=== PATIENT | male | born 1990 ===

== ENCOUNTER 2019-10-26 15:47 | Emergency (ER) | payer OTHER, MEDICAID, SELFPAY ==
[2019-10-26] VITALS (33 sets, daily range): BP systolic 93–116; BP diastolic 30–73; PULSE 110–156; RESP 16–40; TEMP 37.6–41.6; O2SAT 81–100
[2019-10-26] MEDS: KETAMINE 500 MG/5 ML INJ 150 MG IV (15:47)
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
--- NOTE | 2019-10-26 15:54 | DI.RAD.S_ITS ---
PROCEDURE: XR CHEST 1V INDICATIONS: altered mental status TECHNIQUE: One view of the chest was acquired. COMPARISON: None. FINDINGS: Surgical changes and devices: None. Lungs and pleura: An ice pack overlying the right shoulder results in limited evaluation of the osseous structures of the right shoulder or the right lung apex. No obvious right-sided area of consolidation is seen. There is no definitive pneumothorax. Mediastinum: Mediastinal contours appear normal. Heart size is normal. Bones and chest wall: No suspicious bony lesions. Overlying soft tissues appear unremarkable. IMPRESSION: Limited evaluation of the chest related to overlying material on the right lung apex and shoulder. No acute cardiopulmonary process is suspected. Dictated by: Sunil Lim M.D. on 10/26/2019 at 15:16 Approved by: Sunil Lim M.D. on 10/26/2019 at 15:17
[2019-10-26 16:10] LABS: Add Manual Diff / Slide Review NO; Basophils Absolute Auto 100 /uL (0-100); Basophils Percent Auto 0.7 % (0-2); Eosinophils Absolute Auto 100 /uL (0-450); Eosinophils Percent Auto 0.5 % (2-4); Hematocrit 38.6 % (41-53); Hemoglobin 13.3 g/dL (13.5-17.5); Lymphocytes Absolute Auto 3100 /uL (1100-4500); Lymphocytes Percent Auto 28.7 % (25-40); Mean Corpuscular HGB Conc 34.6 % (30-36); Mean Corpuscular Hemoglobin 31.9 PG (26-34); Mean Corpuscular Volume 92.4 fL (80-100); Monocytes Absolute Auto 900 /uL (0-900); Monocytes Percent Auto 8.7 % (3-14); Neutrophils Absolute Auto 6600 /uL (1500-7000); Neutrophils Percent Auto 61.4 % (50-75); Platelet Count 475 X10^3/uL (150-400); Red Blood Cell Count 4.18 X10^6/uL (4.5-5.9); Red Cell Distribution Width 12.1 % (11.6-14.8); White Blood Cell Count 10.7 X10^3/uL (4.5-11.0)
[2019-10-26] MEDS: SODIUM CHLORIDE 0.9% 1,000 ML 150 ML IV (16:12)
--- NOTE | 2019-10-26 16:14 | DI.CT.S_ITS ---
PROCEDURE: CT HEAD/BRAIN WO CON INDICATIONS: altered mental status TECHNIQUE: Noncontrast 4.5 mm thick angled axial sections acquired from the foramen magnum to the vertex, with coronal and sagittal reformats. For radiation dose reduction, the following was used: automated exposure control, adjustment of mA and/or kV according to patient size. COMPARISON: None. FINDINGS: Image quality: Excellent. CSF spaces: Basal cisterns are patent. No extra-axial fluid collections. Ventricles are normal in size and shape. Mild prominence of the tentorium in the midline falx is present. Calcifications along the tentorium are incidentally noted. Brain: No midline shift. No intracranial masses or hemorrhage. Jones-white matter interface is normal. Skull and face: Calvarium and visualized facial bones are intact, without suspicious lesions. Sinuses: Visualized sinuses and mastoids are clear. IMPRESSION: No acute intracranial hemorrhage. Calcifications along the tentorium may be related to previous infection or hemorrhage. Dictated by: Sunil Lim M.D. on 10/26/2019 at 15:41 Approved by: Sunil Lim M.D. on 10/26/2019 at 15:43
[2019-10-26 16:23] LABS: PTT Partial Thromboplastin Tim 28 SECONDS (26.4-36.2)
[2019-10-26 16:25] LABS: UR Morphine/Opiate cutoff 300 Negative (Negative); Ur Creatinine Normal (Normal); Ur Specific Gravity Normal (Normal); Urine Amphetamines Positive (Negative); Urine Barbiturates Negative (Negative); Urine Benzodiazepines Negative (Negative); Urine Cocaine Negative (Negative); Urine MDMA Positive (Negative); Urine Methadone Negative (Negative); Urine Methamphetamines Positive (Negative); Urine Oxycodone Negative (Negative); Urine Phencyclidine Negative (Negative); Urine Tetrahydrocannabinol Positive (Negative); Urine Tricyclic Antidepressant Negative (Negative); Urine pH Normal (Normal)
[2019-10-26 16:26] LABS: Creatine Kinase 195 U/L (55-170)
[2019-10-26 16:27] LABS: Acetaminophen < 10 ug/mL (10-30); Alanine Aminotransferase 18 IU/L (<50); Albumin 5.1 g/dL (3.5-5.0); Albumin Globulin Ratio 1.8 (1.0-2.8); Alkaline Phosphatase 84 U/L (38-126); Aspartate Aminotransferase 30 IU/L (17-59); Bilirubin Total 0.5 mg/dL (0.2-1.3); Blood Urea Nitrogen 12 mg/dL (9-20); Calcium 9.9 mg/dL (8.4-10.2); Carbon Dioxide 25 mmol/L (22-32); Chloride 101 mmol/L (98-107); Estimated Glomerular Filt Rate > 60.0 mL/min (>60); Ethanol (ETOH) < 10 mg/dL; Globulin 2.9 g/dL (1.7-4.1); Glucose 147 mg/dL (70-100); HEMOLYSIS < 15 (0-50); Salicylate < 1.0 mg/dL (<20); Sodium 143 mmol/L (137-145)
[2019-10-26 16:39] LABS: Troponin I < 0.012 ng/mL (0.01-0.034)
[2019-10-26] MEDS: ACETAMINOPHEN 650 MG SUPP PR (16:40)
[2019-10-26 16:41] LABS: Creatine Kinase MB 3.82 ng/mL (<2.37)
[2019-10-26 16:43] LABS: Prolactin 18.7 ng/mL (3.7-17.9)
[2019-10-26] MEDS: LORazepam 2 MG/ML INJ IV (16:45)
--- NOTE | 2019-10-26 16:47 | PC.NURSE ---
1645 2 mg IV ativan administered per Verbal MD order. Provider, RT, two RN at bedside suctioning patient and setting up for intubation. 10mg IV etomidate and 100mg Roccaronium adminstered IV for intubation @1651. Tube 7.5. Color change. Good Auscultation.
--- NOTE | 2019-10-26 16:57 | PC.NURSE ---
108.3 rectal at 1640
--- NOTE | 2019-10-26 17:01 | DI.RAD.S_ITS ---
PROCEDURE: XR CHEST 1V INDICATIONS: intubated AND gastric tube placement TECHNIQUE: One view of the chest was acquired. COMPARISON: [facility], , XR CHEST 1V, 10/26/2019, 15:58. FINDINGS: Surgical changes and devices: Endotracheal tube and nasogastric tubes are in expected location. Endotracheal tip is 3.5 cm above the cornelius. Lungs and pleura: Lungs are clear. The right costophrenic angle was not imaged. No pleural effusions or pneumothorax. Mediastinum: Mediastinal contours appear normal. Heart size is normal. Bones and chest wall: No suspicious bony lesions. Overlying soft tissues appear unremarkable. IMPRESSION: 1. Expected location of endotracheal and nasogastric tubes. 2. No acute cardiopulmonary disease. Dictated by: Julia Dang M.D. on 10/26/2019 at 18:14 Approved by: Julia Dang M.D. on 10/26/2019 at 18:16
--- NOTE | 2019-10-26 17:05 | PC.NURSE ---
1600 upon arrival to ED temp 108.6 rectal temp obtained. Multiple ice bags applied to body.
--- NOTE | 2019-10-26 17:08 | PC.NURSE ---
cooling blanket placed under and on top of patient to facilitate cooling measures
[2019-10-26] MEDS: PROPOFOL 1,000 MG/100 ML VIAL 2.34 MG IV (17:17)
--- NOTE | 2019-10-26 17:23 | PC.NURSE ---
ABG obtained by RT right wrist
[2019-10-26 17:46] LABS: pH ABG 7.35 (7.35-7.45)
[2019-10-26 17:47] LABS: HCO3 ABG 28 mmol/L (22-26); Oxygen Saturation ABG 100 % (95-100); PCO2 ABG 50.1 mmHg (35-45); PO2 ABG 511 mmHg (80-100); TCO2 ABG 29 mmol/L (21-31)
[2019-10-26 17:48] LABS: Fractionated Inspired Oxygen 100
[2019-10-26] MEDS: SODIUM CHLORIDE 0.9% 1,000 ML 250 ML IV (17:58)
--- NOTE | 2019-10-26 18:17 | PC.NURSE ---
Upon arrival, patient appears blue around lips and is grunting with copious secretions. Is low in possible seizure-like activity. Dr. Lujan gave verbal order for 150mg Ketmine. Patient was placed on NRB at 15L of O2. Patient's saturation ness from 81% on RA to 98& on NRB. He no longer appears blue, is no longer low however continues with secretions and body is rigid with grunting, shallow, fast breathing. patient was suctioned. He went to CT and came back and was suctioned again. At this time a nasal trumpet was placed to attempt Deep suctioning. Patient is still unresponsive and respiratory status appears to be declining. Dr. Lujan at bedside, prepping for intubation.
[2019-10-26] MEDS: ETOMIDATE 2 MG/ML 10 ML VIAL 10 MG IV (18:22)
[2019-10-26] MEDS: ROCURONIUM 50 MG/5 ML INJ 100 MG IV (18:23)
--- NOTE | 2019-10-26 19:45 | PC.NURSE ---
I spoke with poison Control and gave them an update on the patient.
--- NOTE | 2019-10-26 20:02 | PC.NURSE ---
Patient's rectal temp is 108.6F
--- NOTE | 2019-10-26 20:03 | PC.NURSE ---
Patient being suctioned and given meds at this time.
--- NOTE | 2019-10-26 20:05 | PC.NURSE ---
Rectal temp of 108.3F at this time.
--- NOTE | 2019-10-26 20:06 | PC.NURSE ---
In CT Scan
--- NOTE | 2019-10-26 20:09 | PC.NURSE ---
Addendum entered by Carolyne Novak R.N. 10/26/19 20:10: Patient's respiratory and mental status declining, being prepped for intubation at this time. Patient's rectal temp now 107.8F. Cooling blanket set to 60degrees F. applied to front and back of patient along with ice packs. Slow cooling in progress per Dr. Lujan. Cooling to be DC'd at 101.5F. Original Note: Patient's respiratory and mental status declinging, being prepped for intubation at this time.
--- NOTE | 2019-10-26 20:16 | PC.NURSE ---
Intubation in progress.
--- NOTE | 2019-10-26 20:19 | PC.NURSE ---
Temp probe catheter inserted to continuously monitor temp while cooling.
--- NOTE | 2019-10-26 20:25 | PC.NURSE ---
Cooling discontinued and cooling blanket removed at this time. Warm blankets placed on patient. Ice packs removed. Dr. Lujan aware.
--- NOTE | 2019-10-26 21:46 | PC.NURSE ---
2129 Propofol drip continued by EMS in transport.
== END 2019-10-26 21:30 | disposition short-term general hospital (02) ==
PROVIDERS: Emergency Provider Emergency Medicine
DX: R50.9 Fever, unspecified (principal); R00.0 Tachycardia, unspecified; R41.82 Altered mental status, unspecified; J96.90 Respiratory failure, unspecified, unspecified whether with hypoxia or hypercapnia
CPT/HCPCS: 31500; 36600; 70450; 71045; 80053; 80305; 80320; 80329; 82550; 82553; 82805; 84146; 84443; 84484; 85025; 85610; 85730; 87086; 93005; 94002; 94770; 94799; 96365; 96366; 96375; 99285; 99291; 99292; G0480; J2060; J2704